=== PATIENT | male | born 1965 | race Hispanic/Latino ===

== ENCOUNTER 2018-06-15 14:15 | Emergency (ER) | payer MEDICAID ==
[2018-06-15 14:16] VITALS: BMI 36.9
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
[2018-06-15] MEDS ORDERED: Oxycodone/Acetaminophen 5/325 mg Tab PO STA (15:13)
[2018-06-15 15:35] VITALS: TEMP 98.7
[2018-06-15 17:33] VITALS: BP 139/91; PULSE 73; RESP 18; O2SAT 100
--- NOTE | 2018-06-15 17:46 | RAD ---
PROCEDURE: Left Knee Radiographs. HISTORY: lt. knee pain x 3 years COMPARISON: Left knee radiographs performed 04/06/14 FINDINGS: BONES: Osseous demineralization. Degenerative changes including tenting of the intercondylar notch. No acute displaced fracture. JOINTS: No dislocation. Patellofemoral joint space narrowing. JOINT EFFUSION: Probable small suprapatellar joint effusion. OTHER FINDINGS: None. IMPRESSION: Degenerative changes. Patellofemoral joint space narrowing. Probable small suprapatellar joint effusion. No acute displaced fracture or dislocation.
== END 2018-06-15 18:36 | disposition home or self-care (01) ==
LOC: ED 14:15
DX: I10 Essential (primary) hypertension (principal); G89.29 Other chronic pain